=== PATIENT | female | born 1950 | race Caucasian/White ===

== ENCOUNTER 2021-06-23 16:49 | Emergency (ER) | payer OTHER, MEDICARE ==
[2021-06-23] MEDS ORDERED: LIDOCAINE VISCOUS 2% SOLN 15 ML UDC ONE (17:33)
--- NOTE | 2021-06-23 17:33 | RAD REPORT ---
EXAM DESCRIPTION: RAD - Neck Soft Tissue - 06/23/2021 5:23 pm CLINICAL HISTORY: Swallowed foreign body FINDINGS: Prevertebral soft tissues appear unremarkable Hypopharynx is poorly distended. Subglottic trachea appears unremarkable. No gross evidence of a radiopaque foreign body
--- NOTE | 2021-06-23 18:01 | ER ---
Nurse's Notes [facility] Name: Marie Serrano Age: 71 yrs Sex: Female : 1950 Arrival Date: 06/23/2021 Time: 16:52 Bed 24 Private MD: Diagnosis: Superficial foreign body of throat Presentation: 06/23 17:02 Chief complaint: Patient states: Pt was on cruise where she feels something lodged in ch5 her throat. Tried to eat bread, marshmallow and throw up to dislodge something. Went to MD office today and was told to go to ed. Coronavirus screen: Vaccine status: Patient reports receiving the 2nd dose of the covid vaccine. Ebola Screen: Patient negative for fever greater than or equal to 101.5 degrees Fahrenheit, and additional compatible Ebola Virus Disease symptoms Patient denies exposure to infectious person. Patient denies travel to an Ebola-affected area in the 21 days before illness onset. Initial Sepsis Screen: Does the patient meet any 2 criteria? No. Patient's initial sepsis screen is negative. Does the patient have a suspected source of infection? No. Patient's initial sepsis screen is negative. Risk Assessment: Do you want to hurt yourself or someone else? Patient reports no desire to harm self or others. Onset of symptoms was June 19, 2021. 17:02 Acuity: GEMA 3 ch5 17:02 Method Of Arrival: Ambulatory 5 Triage Assessment: 17:02 General: Appears in no apparent distress. Behavior is calm. Pain: Pain currently is 1 ch5 out of 10 on a pain scale. at worst was 10 out of 10 on a pain scale. Aggravated by eating. - Immunization history:: Adult Immunizations up to date. - Social history:: Smoking status: Patient denies any tobacco usage or history of. Screenin:06 Abuse screen: Denies threats or abuse. Denies injuries from another. Nutritional ch5 screening: No deficits noted. On. Tuberculosis screening: No symptoms or risk factors identified. Fall Risk None identified. Assessment: 17:06 Reassessment: Patient appears in no apparent distress at this time. ch5 17:36 Reassessment: Patient appears in no apparent distress at this time. Patient and/or aj2 family updated on plan of care and expected duration. Pain level reassessed. Patient is alert, oriented x 3, equal unlabored respirations, skin warm/dry/pink. General: Appears in no apparent distress. comfortable, Behavior is calm, cooperative. 17:36 Pain: Complains of pain in Denies pain \T\ rest. Report pain 7/10 when swallowing. aj2 Vital Signs: 17:02 BP 158 / 94; Pulse 95; Resp 20; Temp 98.3(TE); Pulse Ox 98% on R/A; Weight 78.02 kg; ch5 Height 5 ft. 5 in. (165.10 cm); Pain 1/10; 17:36 BP 144 / 95; Pulse 77; Resp 18; Temp 98.6; Pulse Ox 100% ; aj2 17:02 Body Mass Index 28.62 (78.02 kg, 165.10 cm) 5 ED Course: 16:52 Patient arrived in ED. ds1 17:05 Triage completed. 5 17:06 Arm band placed on right wrist. 5 17:06 Bed in low position. Call light in reach. Side rails up X2. 5 17:06 No provider procedures requiring assistance completed. 5 17:07 Daniel Vizcaino PA is PHCP. bd 17:07 Santi Silverman MD is Attending Physician. bd 17:14 Duncan Saab is Primary Nurse. aj2 17:23 XRAY Neck Soft Tissue In Process Unspecified. EDMS 17:36 No apparent distress. Resting quietly. aj2 17:36 No provider procedures requiring assistance completed. Patient did not have IV access aj2 during this emergency room visit. 18:00 Monet Lucas MD is Referral Physician. jr8 Administered Medications: 17:15 Drug: Viscous Lidocaine Liquid (4 %) 10 ml Route: Mucous Membrane; jl7 Outcome: 18:00 Discharge ordered by . jr8 18:08 Discharged to home ambulatory. aj2 18:08 Condition: stable 18:08 Discharge instructions given to patient, Instructed on discharge instructions, follow up and referral plans. Demonstrated understanding of instructions, follow-up care. 18:16 Patient left the ED. aj2 Signatures: Dispatcher [employer] EDMS Sugey Vogel brianna LandrumCassi florez ds1 Daniel Vizcaino PA PA jr8 Anahi Britton RN RN jl7 Duncan Saab aj2 Bishop, Christopher, RN RN ch5
--- NOTE | 2021-06-23 18:01 | EDPHYS ---
Physician Documentation [facility] Name: Marie Serrano Age: 71 yrs Sex: Female : 1950 Arrival Date: 06/23/2021 Time: 16:52 Bed 24 Private MD: ED Physician Santi Silverman HPI: 06/23 18:45 This 71 yrs old Female presents to ER via Ambulatory with complaints of jr8 Foreign Body In Throat. 18:45 Onset: The symptoms/episode began/occurred acutely, 3 day(s) ago. Severity of symptoms: jr8 At their worst the symptoms were mild in the emergency department the symptoms are unchanged. The patient has not experienced similar symptoms in the past. The patient has not recently seen a physician. Patient stated that she was eating fish on Tuesday. [place] that she had a fishbone stuck on the right side of her throat. Has not been able to get rid of the pain so came to the emergency room for further evaluation today. - Immunization history:: Adult Immunizations up to date. - Social history:: Smoking status: Patient denies any tobacco usage or history of. ROS: 18:45 Eyes: Negative for injury, pain, redness, and discharge, Neck: Negative for injury, jr8 pain, and swelling, Cardiovascular: Negative for chest pain, palpitations, and edema, Respiratory: Negative for shortness of breath, cough, wheezing, and pleuritic chest pain, Abdomen/GI: Negative for abdominal pain, nausea, vomiting, diarrhea, and constipation, Back: Negative for injury and pain, MS/Extremity: Negative for injury and deformity, Skin: Negative for injury, rash, and discoloration, Neuro: Negative for headache, weakness, numbness, tingling, and seizure. 18:45 ENT: Positive for Lower pharyngeal pain. Exam: 18:45 Constitutional: This is a well developed, well nourished patient who is awake, alert, jr8 and in no acute distress. ENT: Nares patent. No nasal discharge, no septal abnormalities noted. Tympanic membranes are normal and external auditory canals are clear. Oropharynx with no redness, swelling, or masses, exudates, or evidence of obstruction, uvula midline. Mucous membranes moist. Neck: Trachea midline, no thyromegaly or masses palpated, and no cervical lymphadenopathy. Supple, full range of motion without nuchal rigidity, or vertebral point tenderness. No Meningismus. Cardiovascular: Regular rate and rhythm with a normal S1 and S2. No gallops, murmurs, or rubs. Normal PMI, no JVD. No pulse deficits. Respiratory: Lungs have equal breath sounds bilaterally, clear to auscultation and percussion. No rales, rhonchi or wheezes noted. No increased work of breathing, no retractions or nasal flaring. Abdomen/GI: Soft, non-tender, with normal bowel sounds. No distension or tympany. No guarding or rebound. No evidence of tenderness throughout. Skin: Warm, dry with normal turgor. Normal color with no rashes, no lesions, and no evidence of cellulitis. MS/ Extremity: Pulses equal, no cyanosis. Neurovascular intact. Full, normal range of motion. Neuro: Awake and alert, GCS 15, oriented to person, place, time, and situation. Cranial nerves II-XII grossly intact. Motor strength 5/5 in all extremities. Sensory grossly intact. Vital Signs: 17:02 BP 158 / 94; Pulse 95; Resp 20; Temp 98.3(TE); Pulse Ox 98% on R/A; Weight 78.02 kg; ch5 Height 5 ft. 5 in. (165.10 cm); Pain 1/10; 17:36 BP 144 / 95; Pulse 77; Resp 18; Temp 98.6; Pulse Ox 100% ; aj2 17:02 Body Mass Index 28.62 (78.02 kg, 165.10 cm) ch5 MDM: 17:16 Patient medically screened. [facility] 17:59 ED course: I had patient gargle with viscous lidocaine and then superficially looked at jr8 the pharyngeal region with glide scope. No active bleeding, no erythema, no soft tissue swelling, no identified foreign body. Cannot reach to the region of the vallecula. Recommended that we set up appointment with otolaryngology which Dr. Lucas will see patient first thing tomorrow. Patient otherwise hemodynamically stable and there was no significant finding on the soft tissue x-ray we will send patient home to follow-up with them tomorrow. Patient is good with this at this time.. 18:45 Data reviewed: vital signs, nurses notes, radiologic studies, plain films. Data jr8 interpreted: Pulse oximetry: on room air is 100 %. Interpretation: normal. Counseling: I had a detailed discussion with the patient and/or guardian regarding: the historical points, exam findings, and any diagnostic results supporting the discharge/admit diagnosis, radiology results, the need for outpatient follow up, an ENT specialist, to return to the emergency department if symptoms worsen or persist or if there are any questions or concerns that arise at home. 06/23 17:02 Order name: XRAY Neck Soft Tissue; Complete Time: 17:35 jl7 Administered Medications: 17:15 Drug: Viscous Lidocaine Liquid (4 %) 10 ml Route: Mucous Membrane; jl7 Disposition Summary: 06/23/21 18:00 Discharge Ordered Location: Home jr8 Problem: new jr8 Symptoms: have improved jr8 Condition: Stable jr8 Diagnosis - Superficial foreign body of throat jr8 Followup: jr8 - With: Monet Lucas MD - When: Tomorrow - Reason: Recheck today's complaints, Continuance of care, Re-evaluation by your physician Discharge Instructions: - Discharge Summary Sheet jr8 - Foreign Body jr8 Forms: - Medication Reconciliation Form jr8 - Thank You Letter jr8 - Antibiotic Education jr8 - Prescription Opioid Use jr8 Addendum: 06/25/2021 10:57 Co-signature as Attending Physician, Santi Silverman MD I agree with the assessment and c sanches plan of care. Signatures: Dispatcher [employer] Santi Rasmussen MD MD cha Roszak, Josh, PA PA jr8 Anahi Britton RN RN jl7 Silver Alas RN RN ch5
[2021-06-23 18:30] VITALS: BP 144/95; TEMP 98.6; O2SAT 100
== END 2021-06-23 18:16 | disposition home or self-care (01) ==
LOC: ER 16:49
DX: S10.15XA Superficial foreign body of throat, initial encounter (principal)
CPT/HCPCS: 70360; 99283

== ENCOUNTER 2022-04-02 15:37 | Emergency (ER) | payer OTHER ==
[2022-04-02 16:09] LABS: Absolute Lymphocytes (CBC) 1.4 K/uL (0.7-4.9); Hematocrit 44.3 % (36.0-45.0); MCV 86.8 fL (80-100)
[2022-04-02 16:34] LABS: Magnesium 2.7 mg/dL (1.8-2.4); Troponin High Sensitivity 4.7 pg/mL (<58.9)
--- NOTE | 2022-04-02 16:48 | RAD REPORT ---
EXAM DESCRIPTION: Parmjit Single View04/02/2022 4:26 pm CLINICAL HISTORY: Dizziness COMPARISON: 2019 FINDINGS: Lungs are mildly to moderately hyperaerated. The lungs appear clear of acute infiltrate. The heart is normal size IMPRESSION: No acute abnormalities displayed
--- NOTE | 2022-04-02 17:03 | EDPHYS ---
Physician Documentation [facility] Name: Marie Serrano Age: 72 yrs Sex: Female : 1950 Arrival Date: 04/02/2022 Time: 15:38 Bed 17 Private MD: Soledad Pope C ED Physician Kota Hayes HPI: 04/02 16:29 This 72 yrs old Female presents to ER via Unassigned with complaints of Blood Pressure ms3 Problem, Near Syncope, Headache. 16:29 The patient has experienced near-syncope, almost passed out, felt dizzy, felt faint, ms3 felt generally weak. Onset: The symptoms/episode began/occurred acutely, just prior to arrival. Duration: This was a single episode. Context: occurred at home. Associated injury: The patient did not suffer any apparent associated injury. Associated signs and symptoms: Pertinent positives: dizziness, headache, shortness of breath. Current symptoms: headache, that is mild. Historical: - Allergies: 16:55 No Known Allergies; jd3 - PMHx: 16:55 HTN; jd3 - Immunization history:: Adult Immunizations up to date, Client reports receiving the 2nd dose of the Covid vaccine, Flu vaccine is up to date. - Social history:: Smoking status: Patient denies any tobacco usage or history of. ROS: 16:29 Constitutional: Negative for fever, and chills. Neck: Negative for injury, pain, and ms3 swelling, Cardiovascular: Negative for chest pain, and palpitations. 16:29 Abdomen/GI: Negative for abdominal pain, nausea, vomiting, diarrhea, and constipation, MS/Extremity: Negative for injury and deformity, Skin: Negative for injury, rash, and discoloration. 16:29 Respiratory: Positive for shortness of breath. 16:29 Abdomen/GI: 16:29 Neuro: Positive for headache. 16:29 All other systems are negative. Exam: 16:16 ECG was reviewed by the Attending Physician. ms3 16:31 Constitutional: This is a well developed, well nourished patient who is awake, alert, ms3 and in no acute distress. Head/Face: Normocephalic, atraumatic. Neck: Trachea midline, no cervical lymphadenopathy. Supple, full range of motion without nuchal rigidity, or vertebral point tenderness. No Meningismus. Chest/axilla: Normal chest wall appearance and motion. Nontender with no deformity. Cardiovascular: Regular rate and rhythm with a normal S1 and S2. No gallops, murmurs, or rubs. Normal PMI, no JVD. No pulse deficits. Respiratory: Lungs have equal breath sounds bilaterally, clear to auscultation and percussion. No rales, rhonchi or wheezes noted. No increased work of breathing, no retractions or nasal flaring. Abdomen/GI: Soft, non-tender, with normal bowel sounds. No distension or tympany. No guarding or rebound. No evidence of tenderness throughout. Skin: Warm, dry with normal turgor. Normal color with no rashes, no lesions, and no evidence of cellulitis. MS/ Extremity: Pulses equal, no cyanosis. Neurovascular intact. Full, normal range of motion. Neuro: Awake and alert, GCS 15, oriented to person, place, time, and situation. Cranial nerves II-XII grossly intact. Motor strength 5/5 in all extremities. Sensory grossly intact. Cerebellar exam normal. Normal gait. Psych: Awake, alert, with orientation to person, place and time. Behavior, mood, and affect are within normal limits. Vital Signs: 16:02 BP 110 / 67; Pulse 87; Resp 15; Temp 97.5; Pulse Ox 99% on R/A; Weight 80.74 kg (R); mb7 Height 5 ft. 5 in. (165.10 cm) (R); 16:56 BP 106 / 65; Pulse 80; Resp 17 S; Temp 97.7(TE); Pulse Ox 98% on R/A; Weight 80.74 kg jd3 (R); Height 5 ft. 5 in. (165.10 cm) (R); Pain 1/10; 16:56 Body Mass Index 29.62 (80.74 kg, 165.10 cm) jd3 MDM: 16:03 Patient medically screened. ms3 16:31 Differential Diagnosis: cardiac arrhythmia, drug effect, vasovagal episode. ms3 17:03 Data reviewed: vital signs, nurses notes, lab test result(s), EKG, radiologic studies, ms3 and as a result, I will discharge patient. Data interpreted: nurse monitoring: rate is 80 beats/min, rhythm is normal sinus rhythm, regular, with no ectopy, Interpretation: normal rate, normal rhythm. Counseling: I had a detailed discussion with the patient and/or guardian regarding: the historical points, exam findings, and any diagnostic results supporting the discharge/admit diagnosis, lab results, radiology results, the need for outpatient follow up, to return to the emergency department if symptoms worsen or persist or if there are any questions or concerns that arise at home. ED course: Discussed case with Dr Pope and he will see patient on Tuesday or Tuesday in clinic. Patient to take 1/2 of Lisinopril/HCTZ tab daily. Patient to check her BP prior to taking pill to ensure SBP >120 mm Hg. Discussed chest x-ray, labs, EKG, physical exam findings with patient. Patient to follow-up with primary care physician in 2 to 3 days. Patient understands and agrees with plan. All questions were answered. Return precautions discussed include worsening symptoms, or any other concerns. On reevaluation patient is improved, alert and oriented x4, no apparent distress, nontoxic, ambulatory in emergency department.. 04/02 15:45 Order name: Basic Metabolic Panel; Complete Time: 16:37 ms3 04/02 15:45 Order name: CBC with Diff; Complete Time: 16:37 ms3 04/02 15:45 Order name: Magnesium; Complete Time: 16:37 ms3 04/02 15:45 Order name: Troponin HS; Complete Time: 16:37 ms3 04/02 15:45 Order name: XRAY Chest (1 view); Complete Time: 16:51 ms3 04/02 15:45 Order name: EKG; Complete Time: 15:45 ms3 04/02 15:45 Order name: Cardiac monitoring; Complete Time: 16:03 ms3 04/02 15:45 Order name: EKG - Nurse/Tech; Complete Time: 16:17 ms3 04/02 15:45 Order name: IV Saline Lock; Complete Time: 16:05 ms3 04/02 15:45 Order name: Labs collected and sent; Complete Time: 16:05 ms3 04/02 15:45 Order name: O2 Per Protocol; Complete Time: 16:03 ms3 04/02 15:45 Order name: O2 Sat Monitoring; Complete Time: 16:03 ms3 EC:16 Rate is 76 beats/min. Rhythm is regular. QRS [employer] is Normal. DC interval is normal. QRS ms3 interval is normal. Clinical impression: Normal ECG. Interpreted by me. Reviewed by me. Administered Medications: No medications were administered Disposition Summary: 04/02/22 17:03 Discharge Ordered Location: Home ms3 Problem: new ms3 Symptoms: are resolved ms3 Condition: Stable ms3 Diagnosis - Lightheaded ms3 - headache ms3 Followup: ms3 - With: Soledad Pope MD - When: 2 - 3 days - Reason: Re-evaluation by your physician Forms: - Medication Reconciliation Form ms3 - Thank You Letter ms3 - Antibiotic Education ms3 - Prescription Opioid Use ms3 Signatures: Dispatcher [employer] Chris Kenney RN RN jd3 Kota Hayes DO DO ms3
--- NOTE | 2022-04-02 17:03 | ER ---
Nurse's Notes [facility] Name: Marie Serrano Age: 72 yrs Sex: Female : 1950 Arrival Date: 04/02/2022 Time: 15:38 Bed 17 Private MD: Soledad Pope C Diagnosis: Lightheaded;headache Presentation: 04/02 16:53 Chief complaint: Patient states: "I have been having this dizzy feeling that started jd3 yesterday. I am thinking it might be related to my blood pressure medications.". Coronavirus screen: At this time, the client does not indicate any symptoms associated with coronavirus-19. Ebola Screen: No symptoms or risks identified at this time. Initial Sepsis Screen: Does the patient meet any 2 criteria? No. Patient's initial sepsis screen is negative. Does the patient have a suspected source of infection? No. Patient's initial sepsis screen is negative. Risk Assessment: Do you want to hurt yourself or someone else? Patient reports no desire to harm self or others. Onset of symptoms was April 01, 2022. 16:53 Acuity: GEMA 3 jd3 16:53 Method Of Arrival: Ambulatory jd3 Historical: - Allergies: 16:55 No Known Allergies; jd3 - PMHx: 16:55 HTN; jd3 - Immunization history:: Adult Immunizations up to date, Client reports receiving the 2nd dose of the Covid vaccine, Flu vaccine is up to date. - Social history:: Smoking status: Patient denies any tobacco usage or history of. Screenin:58 Abuse screen: Denies threats or abuse. Nutritional screening: No deficits noted. jd3 Tuberculosis screening: No symptoms or risk factors identified. Fall Risk None identified. Assessment: 16:56 General: Appears in no apparent distress. comfortable, Behavior is calm, cooperative, jd3 appropriate for age. Pain: Complains of pain in head Quality of pain is described as aching. Neuro: Spears Agitation-Sedation Scale (RASS): 0 - Alert and Calm Level of Consciousness is awake, alert, obeys commands, Oriented to person, place, time, situation, Moves all extremities. Full function Speech is normal, Pupils are PERRLA. Cardiovascular: Heart tones present Capillary refill < 3 seconds Patient's skin is warm and dry. Respiratory: Airway is patent Respiratory effort is even, unlabored, Respiratory pattern is regular, symmetrical, Breath sounds are clear bilaterally. Denies cough, shortness of breath. GI: No signs and/or symptoms were reported involving the gastrointestinal system. : No signs and/or symptoms were reported regarding the genitourinary system. EENT: No signs and/or symptoms were reported regarding the EENT system. Derm: Skin is intact, Skin is dry, Skin is normal, Skin temperature is warm. Musculoskeletal: Circulation, motion, and sensation intact. Range of motion: intact in all extremities. 17:20 Reassessment: Patient appears in no apparent distress at this time. Patient and/or jd3 family updated on plan of care and expected duration. Pain level reassessed. Patient is alert, oriented x 3, equal unlabored respirations, skin warm/dry/pink. Patient states feeling better. Vital Signs: 16:02 BP 110 / 67; Pulse 87; Resp 15; Temp 97.5; Pulse Ox 99% on R/A; Weight 80.74 kg (R); mb7 Height 5 ft. 5 in. (165.10 cm) (R); 16:56 BP 106 / 65; Pulse 80; Resp 17 S; Temp 97.7(TE); Pulse Ox 98% on R/A; Weight 80.74 kg jd3 (R); Height 5 ft. 5 in. (165.10 cm) (R); Pain 1/10; 16:56 Body Mass Index 29.62 (80.74 kg, 165.10 cm) [facility] ED Course: 15:38 Patient arrived in ED. as 15:38 Soledad Pope MD is Private Physician. as 15:44 Kota Hayes DO is Attending Physician. ms3 16:01 Initial lab(s) drawn, by pa, sent to lab. Inserted saline lock: 20 gauge in right dh3 antecubital area, using aseptic technique. Blood collected. 16:02 Patient has correct armband on for positive identification. Bed in low position. Call mb7 light in reach. Side rails up X 1. Door closed. Noise minimized. Warm blanket given. 16:17 EKG done, by ED staff, reviewed by Kota Hayes DO. mb7 16:28 XRAY Chest (1 view) In Process Unspecified. EDMS 16:53 Chris Soares, RN is Primary Nurse. jd3 16:55 Triage completed. jd3 16:58 Arm band placed on. EKG completed in triage. Results shown to MD. jd3 17:02 Soledad Pope MD is Referral Physician. ms3 17:20 No provider procedures requiring assistance completed. IV discontinued, intact, jd3 bleeding controlled, No redness/swelling at site. Pressure dressing applied. Administered Medications: No medications were administered Medication: 16:58 VIS not applicable for this client. jd3 Outcome: 17:03 Discharge ordered by MD. ms3 17:20 Discharged to home ambulatory, with family. jd3 17:20 Condition: stable 17:20 Discharge instructions given to patient, family, Instructed on discharge instructions, follow up and referral plans. Demonstrated understanding of instructions, follow-up care. 17:20 Patient left the ED. jd3 Signatures: Dispatcher [employer] Candy Ayon Deanna 3 Chris Soares RN RN jd3 Kota Hayes DO DO ms3 Zulema Allan 7
[2022-04-02 17:43] VITALS: BP 106/65; TEMP 97.7; O2SAT 98
--- NOTE | 2022-04-05 13:54 | EKG ---
Test Date: 2022-04-02 Test Time: 16:16:27 Dental Patient Coordinator: MB MEASUREMENT RESULTS: Intervals: Rate: 76 IN: 158 QRSD: 74 QT: 358 QTc: [address]: P: 73 IN: 158 QRS: 70 T: 79 INTERPRETIVE STATEMENTS: Normal sinus rhythm Right atrial enlargement Borderline ECG Compared to ECG 09/12/2019 08:37:45 Atrial abnormality now present Electronically Signed On 04-05-22 13:48:37 CDT by Jose Antonio Jimenes
== END 2022-04-02 17:20 | disposition home or self-care (01) ==
LOC: ER 15:37
DX: R42 Dizziness and giddiness (principal); R51.9 Headache, unspecified; I10 Essential (primary) hypertension; R55 Syncope and collapse
CPT/HCPCS: 36415; 71045; 80048; 83735; 84484; 85025; 93005